=== PATIENT | male | born 1965 | race Caucasian/White ===

== ENCOUNTER 2016-05-12 04:43 | Emergency (ER) | payer OTHER ==
[~2016-05-12] VITALS: Ht 175.3 cm; Wt 99.8 kg
[2016-05-12 04:49] VITALS: BP 135/83; PULSE 79; RESP 16; TEMP 98.8; O2SAT 100
--- NOTE | 2016-05-12 04:49 | NUR ---
Placed in room 08 . 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 To gown for exam. Side rails up. Report given to CARMEN Blackmon.
--- NOTE | 2016-05-12 04:55 | NUR ---
Pt states that he has been having body aches, chills, N, D, and V since this tuesday. Pt rates pain 11/04. Will continue to monitor. No other injuries or complaints mentioned/noted. No distress noted.
--- NOTE | 2016-05-12 05:10 | NUR ---
ER Dr. Noel at bedside examining patient.
[2016-05-12] MEDS ORDERED: NACL 0.9% 1,000 ML IV ONE (05:19)
[2016-05-12] MEDS ORDERED: ACETAMINOPHEN 500 MG TABLET PO ONE (05:30)
[2016-05-12] MEDS ORDERED: ONDANSETRON HCL 4 MG/2 ML VIAL IVP ONE (05:30)
[2016-05-12 06:01] LABS: BASOPHILS % (AUTO) 0.3 % (0.0-2.0); EOSINOPHILS % (AUTO) 0.1 % (0.0-4.0); HEMATOCRIT 43.2 % (36-54); HEMOGLOBIN 14.1 g/dL (14.0-18.0); LYMPHOCYTES # (AUTO) 0.7 K/uL (1.0-5.5); LYMPHOCYTES % (AUTO) 10.2 % (20.5-51.5); MEAN CORPUSCULAR HEMOGLOBIN 30 pg (27-31); MEAN CORPUSCULAR HGB CONC 33 % (32-36); MEAN CORPUSCULAR VOLUME 90 fL (79.0-98.0); MONOCYTES # (AUTO) 0.6 K/uL (0.0-1.0); MONOCYTES % (AUTO) 8.8 % (1.7-9.3); NEUTROPHILS # (AUTO) 5.3 K/uL (1.8-7.7); NEUTROPHILS % (AUTO) 80.6 % (40.0-70.0); PLATELET COUNT (AUTO) 220 K/uL (130-430); RED BLOOD CELL COUNT(AUTO) 4.78 MIL/uL (4.2-6.2); RED CELL DISTRIBUTION WIDTH 11.8 % (9.0-15.0); WHITE BLOOD COUNT (AUTO) 6.6 K/uL (4.8-10.8)
[2016-05-12 06:10] LABS: CALCIUM 8.9 mg/dL (8.4-11.0); CREATININE 0.9 mg/dL (0.55-1.30); POTASSIUM 3.7 mmol/L (3.5-5.1)
[2016-05-12 06:16] LABS: ALBUMIN 3.3 g/dL (3.4-4.8); TOTAL BILIRUBIN 0.5 mg/dL (0.0-1.0)
[2016-05-12 06:30] VITALS: BP 129/74; PULSE 64; RESP 16; TEMP 98.2; O2SAT 100
--- NOTE | 2016-05-12 06:30 | NUR ---
Patient given written and verbal discharge instructions and verbalizes understanding. ER MD discussed with patient the results and treatment provided. Patient in stable condition. ID arm band removed. IV catheter removed intact and dressing applied, no active bleeding. Rx of Zofran and tylenol with codeine given. Patient educated on pain management and to follow up with PMD. Pain Scale 0/10. Opportunity for questions provided and answered.
== END 2016-05-12 06:30 | disposition home or self-care (01) ==
LOC: SED 04:43
DX: J11.1 Influenza due to unidentified influenza virus with other respiratory manifestations (principal); F17.200 Nicotine dependence, unspecified, uncomplicated; M32.9 Systemic lupus erythematosus, unspecified
CPT/HCPCS: 36415; 80053; 82150; 85025; 86710; 96361; 96374; 99284; J2405

== ENCOUNTER 2018-01-10 19:17 | Emergency (ER) | payer OTHER ==
[~2018-01-10] VITALS: Ht 175.3 cm; Wt 96.6 kg
[2018-01-10 19:20] VITALS: BP_SYST 147
--- NOTE | 2018-01-10 19:29 | NUR ---
Placed in room 07 . Side rails up. Report given to CARMEN Pleitez.
--- NOTE | 2018-01-10 19:35 | NUR ---
Pt is awake and alert. Family at bedside. Pt C/O pain to right middle finger, pain stated 10/04. Right middle finger intact, swollen and tender to touch. Denies any N/V/D. No signs of SOB or acute distress noted. Will continue to monitor.
--- NOTE | 2018-01-10 19:45 | NUR ---
INDU HU AT BEDSIDE EXAMINING PATIENT.
[2018-01-10] MEDS ORDERED: BACITRACIN 1 GM OINT TP ONE (20:15)
[2018-01-10] MEDS ORDERED: IBUPROFEN 800 MG TABLET PO ONE (20:45)
[2018-01-10] MEDS ORDERED: LIDOCAINE 1% 10 MG/ML, 20 ML MDV INJ ONE (21:00)
[2018-01-10 21:20] VITALS: BP_SYST 135
--- NOTE | 2018-01-10 21:20 | NUR ---
Patient given written and verbal discharge instructions and verbalizes understanding. ER MD TSE discussed with patient the results and treatment provided. Patient in stable condition. ID arm band removed. Rx of Mupirocin, Bactrim, and Motrin given. Patient educated on pain management and to follow up with PMD. Pain Scale 2/10. Opportunity for questions provided and answered. Medication side effect fact sheet provided.
== END 2018-01-10 21:20 | disposition home or self-care (01) ==
LOC: SED 19:17
DX: L03.011 Cellulitis of right finger (principal); R03.0 Elevated blood-pressure reading, without diagnosis of hypertension; Z87.448 Personal history of other diseases of urinary system
CPT/HCPCS: 10060; 99283; J2001

== ENCOUNTER 2019-06-22 20:07 | Emergency (ER) | payer OTHER, BC ==
[~2019-06-22] VITALS: Ht 175.3 cm; Wt 98.9 kg
[2019-06-22 20:08] VITALS: BP_SYST 143
[2019-06-22 21:30] VITALS: BP_SYST 125
== END 2019-06-22 21:30 | disposition home or self-care (01) ==
LOC: SED 20:07
DX: R07.89 Other chest pain (principal)
CPT/HCPCS: 93005; 99283